=== PATIENT | female | born 1965 ===

== ENCOUNTER 2022-02-09 10:00 | Day surgery (SDC) | payer OTHER ==
[~2022-02-09] VITALS: Ht 165.1 cm; Wt 63.5 kg
== END 2022-02-09 18:05 | disposition home or self-care (01) ==
LOC: CIR.AMB 10:00
PROVIDERS: ATTEND Colon & Rectal Surgery
DX: K62.0 Anal polyp (principal); Z20.822 Contact with and (suspected) exposure to COVID-19; K64.8 Other hemorrhoids; Z86.16 Personal history of COVID-19; I10 Essential (primary) hypertension
CPT/HCPCS: 45172; 46255; J3301

== ENCOUNTER 2022-11-09 07:47 | Day surgery (SDC) | payer OTHER ==
[~2022-11-09] VITALS: Ht 165.1 cm; Wt 63.5 kg
[~2022-11-09 07:47] MED LIST: DICLOFENAC POTA50 MG PO
== END 2022-11-09 17:08 | disposition home or self-care (01) ==
LOC: CIR.AMB 07:47
PROVIDERS: ATTEND Colon & Rectal Surgery
DX: K60.3 Anal fistula (principal); K64.8 Other hemorrhoids; L92.9 Granulomatous disorder of the skin and subcutaneous tissue, unspecified; Z20.822 Contact with and (suspected) exposure to COVID-19

== ENCOUNTER 2022-12-28 06:06 | Day surgery (SDC) | payer OTHER ==
[~2022-12-28] VITALS: Ht 165.1 cm; Wt 63.5 kg
== END 2022-12-28 14:35 | disposition home or self-care (01) ==
LOC: CIR.AMB 06:06
PROVIDERS: ATTEND Colon & Rectal Surgery
DX: K60.3 Anal fistula (principal); L92.9 Granulomatous disorder of the skin and subcutaneous tissue, unspecified; K64.4 Residual hemorrhoidal skin tags; K62.89 Other specified diseases of anus and rectum; K64.8 Other hemorrhoids; Z20.822 Contact with and (suspected) exposure to COVID-19

== ENCOUNTER 2023-07-08 05:45 | Day surgery (SDC) | payer OTHER ==
[2023-07-03 10:57] LABS: HEMATOCRIT 43.1 % (39.0-48.0); HEMOGLOBIN 14.7 g/dL (13-16.00); MEAN CELL VOLUME 88.7 fL (80.0-100.00); MEAN CORPUSCULAR HEMOGLOBIN 30.2 pg (27.00-32.0); PLATELET COUNT 239 K/uL (150-450); RED BLOOD COUNT 4.86 M/uL (4.00-6.00); RED CELL DISTRIBUTION WIDTH 13.4 % (11.5-14.5)
[2023-07-03 11:11] LABS: URINE APPEARANCE Clear; URINE BILIRRUBIN Negative (NEGATIVE); URINE BLOOD Negative; URINE COLOR Yellow; URINE GLUCOSE Negative (NEGATIVE); URINE LEUKOCYTE Negative; URINE NITRATE Negative; URINE PROTEIN Negative (NEGATIVE); URINE UROBILINOGEN 0.2 E.U./dl
[2023-07-03 11:12] LABS: URINE EPITHELIAL CELLS 2.4 uL (0.0-38.8); URINE RBC 3.5 uL (0.0-20.8)
[2023-07-03 11:15] LABS: URINE BACTERIA 1.2 uL (0.0-1933); URINE WBC 1.5 uL (0.0-23.2)
[2023-07-03 11:17] LABS: INR 1.02; PARTIAL THROMBOPLASTIN TIME 27.3 SECONDS (22.0-34.0); PROTHROMBIN TIME 10.7 SECONDS (9.0-11.5)
[2023-07-03 11:21] LABS: ALBUMIN 3.9 gm/dL (3.4-5.0); BILIRUBIN TOTAL 0.8 mg/dL (0.3-1.2); CALCIUM 9.2 mg/dL (8.5-10.1); CREATININE SERUM 0.83 mg/dL (0.70-1.30); GFR 95.49; GLOBULINA 3.2 G/DL (2.4-3.5); POTASSIUM 3.93 mEq/L (3.5-5.1); TOTAL PROTEIN 7.1 gm/dL (6.4-8.2)
[2023-07-08] MEDS ORDERED: CEFAZOLIN SODIUM 1,000 MG VIAL ONE (06:24)
[2023-07-08] MEDS ORDERED: LIDOCAINE HCL 1%/Epi 20ML VIAL IJ ONE (06:57)
[2023-07-08] MEDS ORDERED: BUPIVACAINE HCL/PF 0.5% 30ML ML ONE (06:57)
[2023-07-08] MEDS ORDERED: LIDOCAINE HCL/EPINE 1%-Epi 30ML VIAL IJ ONE (08:30)
[2023-07-08] MEDS ORDERED: CEFAZOLIN SODIUM 1,000 MG VIAL IV ONE (08:30)
[2023-07-08] MEDS ORDERED: BUPIVACAINE HCL/PF 0.25% 30ML VIAL InF ONE (08:30)
== END 2023-07-08 11:45 | disposition home or self-care (01) ==
LOC: CIR.AMB 05:45
PROVIDERS: ATTEND Colon & Rectal Surgery
DX: R15.9 Full incontinence of feces (principal); Z88.6 Allergy status to analgesic agent; Z20.822 Contact with and (suspected) exposure to COVID-19
CPT/HCPCS: 64581; 95971; C1778

== ENCOUNTER 2023-07-19 05:33 | Day surgery (SDC) | payer OTHER ==
[2023-07-19] MEDS ORDERED: BUPIVACAINE HCL/PF 0.5% 30ML ML ONE (06:57)
[2023-07-19] MEDS ORDERED: LIDOCAINE HCL 1%/Epi 20ML VIAL IJ ONE ×2 (06:57→08:15)
[2023-07-19] MEDS ORDERED: METRONIDAZOLE/SODIUM CHLORIDE 500 MG/100 ML PIGGYBACK IV ONE ×2 (07:00→08:15)
[2023-07-19] MEDS ORDERED: CEFTRIAXONE SODIUM 2,000 MG VIAL ONE (07:00)
[2023-07-19] MEDS ORDERED: BUPIVACAINE HCL/PF 0.5% 30ML ML IJ ONE (08:15)
[2023-07-19] MEDS ORDERED: CEFTRIAXONE SODIUM 2,000 MG VIAL IV ONE (08:15)
== END 2023-07-19 11:00 | disposition home or self-care (01) ==
LOC: CIR.AMB 05:33
PROVIDERS: ATTEND Colon & Rectal Surgery
DX: R15.9 Full incontinence of feces (principal); Z88.6 Allergy status to analgesic agent
CPT/HCPCS: 64590; 95971; C1767